=== PATIENT | male | born 1955 | race Caucasian/White ===

== ENCOUNTER 2018-08-18 17:41 | Inpatient (IN) | payer BC ==
[~2018-08-18] VITALS: Ht 180.3 cm; Wt 84.5 kg
[2018-08-18 18:10] LABS: BASO # 0.1 (0.0-0.2); BASO % 0.4 % (0.0-2.0); EOS # 0.2 (0.0-0.7); EOS % 1.2 % (0-4.0); GRAN # 7.5 (1.4-6.5); GRAN % 55.1 % (42.2-75.2); HEMATOCRIT 41.7 % (42.0-52.0); HEMOGLOBIN 14.4 g/dl (13.5-18.0); LYMPH # 4.5 (1.2-3.4); LYMPH % 33.3 % (20.0-51.0); MEAN CELL VOLUME 90 fl (80.0-100.0); MEAN CORPUSCULAR HEMOGLOBIN 31 pg (27.0-31.0); MEAN CORPUSCULAR HGB CONC 35 g/dl (33.0-37.0); MEAN PLATELET VOLUME 10.1 fl (7.4-10.4); MONO # 1.3 (0.1-0.6); MONO % 9.6 % (1.7-9.3); PLATELET COUNT 231 K/mm3 (130-400); RED BLOOD COUNT 4.63 M/mm3 (4.20-5.60); REDCELL DISTRIBUTION WIDTH-CV 12.9 % (11.5-14.5)
[2018-08-18 18:16] LABS: INR 0.9 (0.8-3.0); PROTHROMBIN TIME 10.7 SECONDS (9.7-12.8)
[2018-08-18 18:24] LABS: ALBUMIN 4.5 gm/dL (3.5-5.0); BILIRUBIN,TOTAL 0.4 mg/dL (0.0-1.0); CALCIUM 10.1 mg/dL (8.4-10.2); CREATININE, serum 1.31 mg/dL (0.66-1.25); POTASSIUM 3.9 mmol/L (3.4-5.0); TOTAL PROTEIN 7.5 gm/dL (6.4-8.2)
[2018-08-18] MEDS ORDERED: LOFIBRA160 MG PO (19:24)
[2018-08-18] MEDS ORDERED: PRINZIDE 12.5 M1 TA1 PO (19:24)
[2018-08-18] MEDS ORDERED: TOPROL XL 50MG50 MG PO (19:24)
[2018-08-18] MEDS ORDERED: ZANTAC 150150 MG PO (20:25)
[2018-08-18 21:10] VITALS: BP 123/87; PULSE 87; TEMP 98.2
--- NOTE | 2018-08-18 22:00 | NUR ---
Admitted to room 318 from ER with DVT,PE--Has heparin drip infusing at 15.3cc/hr at this time- was started in ER. Pt denies pain at this time.His left lower leg larger than right leg- no redness or warmth noted. VSS
[2018-08-18 23:12] VITALS: BP 138/65; BP 140/82; PULSE 62; PULSE 78; TEMP 97.7; TEMP 98.3
[2018-08-19 02:01] LABS: PH 6 (5-8); SQUAMOUS EPITHELIAL None Seen /hpf; URINE APPEARANCE Clear; URINE BACTERIA None Seen /hpf; URINE BILIRUBIN Negative (NEGATIVE); URINE BLOOD Negative (NEGATIVE); URINE COLOR Yellow; URINE GLUCOSE Negative (NEGATIVE); URINE KETONE Negative (NEGATIVE); URINE LEUKOCYTE ESTERASE Negative (NEGATIVE); URINE NITRATE Negative (NEGATIVE); URINE PROTEIN(semi-quant) Negative (NEGATIVE); URINE RBC 0-2 /hpf; URINE UROBILINOGEN Negative (NEGATIVE)
[2018-08-19 02:55] LABS: COLLECTION METHOD CLEAN CATCH
[2018-08-19 04:19] VITALS: BP 119/69; BP 157/82; PULSE 57; PULSE 88; TEMP 98.4
--- NOTE | 2018-08-19 06:20 | NUR ---
Has rested some last night-- Heparin drip was lowered to 13.8cc/hr after hepxa of 0.81 at 0230 this morning. Troponin was slightly increased- Alycia notified of troponins during the night-
[2018-08-19 08:09] VITALS: BP 133/85; PULSE 84; TEMP 98
[2018-08-19 08:42] LABS: BASO # 0.1 (0.0-0.2); BASO % 0.6 % (0.0-2.0); EOS # 0.2 (0.0-0.7); EOS % 1.9 % (0-4.0); GRAN # 5.9 (1.4-6.5); GRAN % 52.3 % (42.2-75.2); HEMATOCRIT 38.1 % (42.0-52.0); HEMOGLOBIN 13.3 g/dl (13.5-18.0); LYMPH % 35.3 % (20.0-51.0); MEAN CELL VOLUME 90 fl (80.0-100.0); MEAN CORPUSCULAR HEMOGLOBIN 31 pg (27.0-31.0); MEAN CORPUSCULAR HGB CONC 35 g/dl (33.0-37.0); MEAN PLATELET VOLUME 10.3 fl (7.4-10.4); MONO # 1.1 (0.1-0.6); MONO % 9.5 % (1.7-9.3); PLATELET COUNT 204 K/mm3 (130-400); RED BLOOD COUNT 4.24 M/mm3 (4.20-5.60); REDCELL DISTRIBUTION WIDTH-CV 13.1 % (11.5-14.5)
[2018-08-19 09:07] LABS: CALCIUM 9.3 mg/dL (8.4-10.2); CREATININE, serum 1.02 mg/dL (0.66-1.25)
[2018-08-19 09:24] LABS: TROPONIN-I 0.041 ng/mL (0.000-0.035)
[2018-08-19 12:02] VITALS: BP 145/87; PULSE 84; TEMP 98.3
--- NOTE | 2018-08-19 14:42 | NUR ---
SW met with patient about discharge planning. Patient lives at home by himself and works full-time. Patient's PCP is Dr Drake and he obtains prescriptions from [facility]. Patient does not use any home health services or DME. Patient does not have a DPOA and is not interested in completing one at this time. SW does not anticipate any discharge needs.
[2018-08-19 16:47] VITALS: BP 127/82; PULSE 86; TEMP 97.9
[2018-08-19 19:02] VITALS: BP 137/91; PULSE 91; TEMP 98.6
--- NOTE | 2018-08-19 19:02 | NUR ---
Bedside assessment of Heparin gtt reviewed with STEVEN Pedraza
--- NOTE | 2018-08-19 21:48 | NUR ---
Pt resting in bed watching TV, no C/O pain at this time, shift assessments complete, left Pt call light in reach, bed in lowest position.
[2018-08-19 23:06] VITALS: BP 115/65; PULSE 81; TEMP 98.8
[2018-08-20 04:03] VITALS: BP 119/81; PULSE 80; TEMP 98.6
--- NOTE | 2018-08-20 05:28 | NUR ---
Pt slept some during the night, no C/O pain, VS have remained stable.
--- NOTE | 2018-08-20 06:57 | NUR ---
Contacted lab regarding HepXa that was due at 0300, lab states they were unable to draw blood. information technology audit manager asked if they notified anyone about this he replied no. This nurse asked if he could send up another tech to draw blood.
[2018-08-20 07:43] VITALS: BP 127/79; PULSE 80; TEMP 97.6
[2018-08-20 08:37] LABS: BASO # 0.1 (0.0-0.2); BASO % 0.6 % (0.0-2.0); EOS # 0.2 (0.0-0.7); EOS % 1.7 % (0-4.0); GRAN # 6.1 (1.4-6.5); GRAN % 51.3 % (42.2-75.2); HEMOGLOBIN 12.6 g/dl (13.5-18.0); LYMPH # 4.4 (1.2-3.4); LYMPH % 36.8 % (20.0-51.0); MEAN CELL VOLUME 91 fl (80.0-100.0); MEAN CORPUSCULAR HEMOGLOBIN 31 pg (27.0-31.0); MEAN CORPUSCULAR HGB CONC 34 g/dl (33.0-37.0); MEAN PLATELET VOLUME 10.7 fl (7.4-10.4); MONO # 1.1 (0.1-0.6); MONO % 9.3 % (1.7-9.3); PLATELET COUNT 220 K/mm3 (130-400); RED BLOOD COUNT 4.07 M/mm3 (4.20-5.60); REDCELL DISTRIBUTION WIDTH-CV 13.1 % (11.5-14.5)
[2018-08-20 08:40] LABS: CALCIUM 9.6 mg/dL (8.4-10.2); POTASSIUM 4.4 mmol/L (3.4-5.0)
--- NOTE | 2018-08-20 09:30 | NUR ---
patient was resting in bed watching tv upon arrival. Shift assessment complete. patient denies numbness, tingling, dizziness, N/V, SOB, palpitations. Lung sounds are clear throughout, BLE warmth but no swelling. patient states the swelling has also gone down. Hep XA returned, 0.35, new bag started. patient assisted to bathroom, independent. patient had bowel movement and specimen collected for stool occult. Patient has no other needs or questions at this time.
[2018-08-20 11:56] VITALS: BP 133/79; PULSE 83; TEMP 98.5
--- NOTE | 2018-08-20 14:00 | NUR ---
patient sitting in bed with family at bedside, IVF D/C'd. Heparin gtt still going. Patient has no complaints at this time.
[2018-08-20 15:38] VITALS: BP 133/81; PULSE 85; TEMP 98.4
--- NOTE | 2018-08-20 18:38 | NUR ---
patient has had an uneventful day, is independent. Patient sitting on edge of bed watching tv. Patients only complaint is of some pain behind his left knee. Hep gtt still running at 13.8 mls/hr. No other needs at this time.
[2018-08-20 19:12] VITALS: BP 149/89; PULSE 89; TEMP 98.4
--- NOTE | 2018-08-20 20:53 | NUR ---
Pt resting in bed, up on commode passing gas, diarrhea has slowed. Shift assessments complete, left Pt call light in reach, bed in lowest position.
[2018-08-20 23:18] VITALS: BP 156/80; PULSE 113; TEMP 98.2
[2018-08-21 04:19] VITALS: BP 117/70; PULSE 82; TEMP 98.7
--- NOTE | 2018-08-21 05:37 | NUR ---
Pt slept well during the night, no C/O pain, VS have remained stable.
[2018-08-21 07:43] VITALS: BP 145/87; PULSE 79; TEMP 98
--- NOTE | 2018-08-21 09:40 | NUR ---
Patient sitting in bed watching tv upon entering. Heparin drip running at 13.8 cc/hr. Shift assessment completed, Pt denies SOB, palpitations, dizziness, N/V, numbness or tingling. Patient states he slept well, has a good appetite, moved from bed to chair and bed to bathroom over the night. States pain behind left knee is better, rates it at 2/10. Hep gtt D/C'd, xarelto prescribed and has exericise ox. Patient should be discharged today.
[2018-08-21 11:46] VITALS: BP 125/76; PULSE 82; TEMP 98.3
[2018-08-21 11:46] LABS: PARTIAL THROMBOPLASTIN TIME 47.6 SECONDS (26.0-37.0)
--- NOTE | 2018-08-21 14:42 | NUR ---
patient down for CT.
--- NOTE | 2018-08-21 14:45 | NUR ---
Patient is back from CT, heparin hooked back up.
[2018-08-21 16:22] VITALS: BP 134/84; PULSE 81; TEMP 98.7
--- NOTE | 2018-08-21 18:53 | NUR ---
Patient sitting on edge of bed, getting ready to eat dinner. patient has had slightly uneventful day. Originally thought he would discharge, he will be staying to be monitored another day or two. patient states he is feeling much better, no SOB or pain. Heparin gtt at 13.8 cc/hr still going. Gave shift report to STEVEN Muñoz.
[2018-08-21 20:21] VITALS: BP 137/79; PULSE 82; TEMP 98
--- NOTE | 2018-08-21 21:20 | NUR ---
Patient assessed at this time. Denies having pain and discomfort at this time, including to LLE. No swelling, discoloration, or pain to LLE. Pedal pulses present and equal bilaterally. Denies having SOB and dyspnea. Reports occasional productive cough. Unable to produce sputum. Denies having SOB and dyspnea. LS CTA. Respirations even and unlabored. Sitting up in bed visiting with company at this time. Denies having any questions or concerns at this time. Call light is within reach.
[2018-08-22] VITALS (7 sets, daily range): BP systolic 94–152; BP diastolic 58–99; PULSE 78–81; TEMP 97.4–98.4
--- NOTE | 2018-08-22 03:31 | NUR ---
Patient has been denying pain and discomfort during this shift. Encouraged to keep LLE elevated. IV to RAC D/C'd due to being 3 days old, and restarted IV to left forarm. Continues on Heparin drip per orders. Denies having any concerns at this time. Resting in bed with eyes closed at this time. Call light is within reach.
--- NOTE | 2018-08-22 06:08 | NUR ---
Denies having pain and discomfort. Heparin put on hold for short time before HepXa lab was drawn. Restarted Heparin drip afterwards. Awaiting results at this time. Patient denies having any needs or concerns at this time. Sitting up watching TV in bed at this time. Call light is within reach.
--- NOTE | 2018-08-22 12:54 | NUR ---
Pt alert and oriented. Pt rates pain 1/10 at worst when up with movement but at rest pt denies pain. Pt edu on elevating left lower extremity. No redness or edema noted to LLE. Pt given MARSHA hose thigh high to apply. Pt has Heparin running and Hep Xa checked per protocol. IV patent. Pt has order to start IV NS. Attempted to place IV in RFA but small blood return and then flushed and infiltration noted. IV discontinued. Notified Nicolle ANTOINE and NS on hold until we hear from [facility] today. No IV start until then. Pt agrees d/t hard time with veins and IV starts. Pt has call light in reach and company at bedside now.
--- NOTE | 2018-08-22 18:22 | NUR ---
Pt alert and oriented and independent in the room. Pt has MARSHA thigh high on darren lower extremities. Pt Heparin gtt discontinued. Pt started on normal saline per orders. Pt to have CTA of pancreas. [facility] was consulted on pancreatic mass. Pt has call light in reach and has not ate supper d/t receiving contrast with CT. Pt denies needs at this time. Pt LLE not red or edematous. Pt denies pain.
--- NOTE | 2018-08-22 18:49 | NUR ---
Pt report given to Wanda HARRIS. Pt food ordered for after CT has been completed.
--- NOTE | 2018-08-23 01:45 | NUR ---
Patient assessed after returning from CT. Denied having pain and discomfort. Was wearing MARSHA hose to BLE. BLE without redness, warmth, swelling, and pain. Independent in room. NS running at 75 mls/hr to Peripheral IV to left forearm. Site is without redness, warmth, swelling, and pain. LS CTA. Denies having SOB and dyspnea. Resting in bed with eyes closed at this time. Call light is within reach.
[2018-08-23 04:09] VITALS: BP 88/62; PULSE 78; TEMP 97.9
[2018-08-23 04:25] VITALS: BP 110/72
[2018-08-23 06:56] LABS: BASO # 0.1 (0.0-0.2); BASO % 0.7 % (0.0-2.0); EOS # 0.2 (0.0-0.7); EOS % 2.2 % (0-4.0); GRAN # 5.7 (1.4-6.5); GRAN % 60.8 % (42.2-75.2); HEMATOCRIT 38.5 % (42.0-52.0); HEMOGLOBIN 13.1 g/dl (13.5-18.0); LYMPH # 2.4 (1.2-3.4); LYMPH % 25.6 % (20.0-51.0); MEAN CELL VOLUME 90 fl (80.0-100.0); MEAN CORPUSCULAR HEMOGLOBIN 31 pg (27.0-31.0); MEAN CORPUSCULAR HGB CONC 34 g/dl (33.0-37.0); MEAN PLATELET VOLUME 10.1 fl (7.4-10.4); MONO # 0.9 (0.1-0.6); PLATELET COUNT 295 K/mm3 (130-400); RED BLOOD COUNT 4.26 M/mm3 (4.20-5.60); REDCELL DISTRIBUTION WIDTH-CV 13.2 % (11.5-14.5)
[2018-08-23 07:11] LABS: CALCIUM 9.7 mg/dL (8.4-10.2); CREATININE, serum 1.22 mg/dL (0.66-1.25); POTASSIUM 4.3 mmol/L (3.4-5.0)
--- NOTE | 2018-08-23 07:30 | NUR ---
Report received from STEVEN Muñoz
--- NOTE | 2018-08-23 08:01 | NUR ---
Patient was resting in bed with eyes closed most of the night. Denied having pain and discomfort. Voices no needs or concerns. NS continues at 75 ml/hr to peripheral IV to left forearm. Patient put MARSHA hose on this morning. Report given to oncoming nurse.
[2018-08-23 09:24] VITALS: BP 117/80; PULSE 81; TEMP 97.8
--- NOTE | 2018-08-23 11:09 | NUR ---
First visit from the counter waitress/waiter. No needs right now.
[2018-08-23 12:10] VITALS: BP 150/78; PULSE 76; TEMP 98
[2018-08-23] MEDS ORDERED: NICODERM C21 MG/PATC TD (12:42)
[2018-08-23] MEDS ORDERED: XARELTO15 MG PO (12:43)
[2018-08-23] MEDS ORDERED: XARELTO20 MG PO (12:45)
[2018-08-23] MEDS ORDERED: PRINZIDE 12.5 M1 TA1 PO (12:46)
--- NOTE | 2018-08-23 14:29 | NUR ---
AWAITING CALL BACK FROM [facility] FOR APPOINTMENT FOR SURGICAL ONCOLOGY CONSULT.
--- NOTE | 2018-08-23 15:27 | NUR ---
PATIENT RECEIVES PHONE CALL FROM [facility] FOR CONSULT WITH DR. VILLARREAL ON 09-01-18 AT [id number]
--- NOTE | 2018-08-23 15:53 | NUR ---
DISCHARGE PACKET, FOLLOW UP APPTS, MEDICATION LIST AND OTHER NEEDED DISCHARGE INFORMATION REVIEWED. WE DISCUSSED LAB ORDERS FOR 3 DAYS AFTER DISCHARGE. PATIENT VERBALIZES UNDERSTANDING. PATIENT AMBULATES OUT WITH THIS RN AND HIS FATHER.
== END 2018-08-23 15:55 | disposition home or self-care (01) | DRG 175 ==
LOC: COL.ER 17:41 → MEDICAL 19:09
PROVIDERS: Emergency Medicine; Hospitalist; Nurse Practitioner Family; Physician Assistant
DX: I26.99 Other pulmonary embolism without acute cor pulmonale (principal); I21.4 Non-ST elevation (NSTEMI) myocardial infarction; I82.412 Acute embolism and thrombosis of left femoral vein; I82.432 Acute embolism and thrombosis of left popliteal vein; S22.32XA Fracture of one rib, left side, initial encounter for closed fracture; Z66 Do not resuscitate; I10 Essential (primary) hypertension; E78.5 Hyperlipidemia, unspecified; F17.210 Nicotine dependence, cigarettes, uncomplicated; K86.9 Disease of pancreas, unspecified; D73.89 Other diseases of spleen; I27.20 Pulmonary hypertension, unspecified
CPT/HCPCS: 99223-AI; 99232-AI; 99233-AI; 99239; J1644; J7030; Q9967

== ENCOUNTER → 2018-08-26 | Outpatient (CLI) | payer BC ==
[~2018-08-26] MED LIST: LOFIBRA160 MG PO; NICODERM C21 MG/PATC TD; PRINZIDE 12.5 M1 TA1 PO; TOPROL XL 50MG50 MG PO; XARELTO15 MG PO; XARELTO20 MG PO; ZANTAC 150150 MG PO
[2018-08-26 11:07] LABS: HEMATOCRIT 42.5 % (42.0-52.0); HEMOGLOBIN 14.3 g/dl (13.5-18.0); MEAN CELL VOLUME 92 fl (80.0-100.0); MEAN CORPUSCULAR HEMOGLOBIN 31 pg (27.0-31.0); MEAN CORPUSCULAR HGB CONC 34 g/dl (33.0-37.0); MEAN PLATELET VOLUME 9.8 fl (7.4-10.4); PLATELET COUNT 424 K/mm3 (130-400); RED BLOOD COUNT 4.63 M/mm3 (4.20-5.60); REDCELL DISTRIBUTION WIDTH-CV 13.1 % (11.5-14.5)
[2018-08-26 11:19] LABS: CALCIUM 10.4 mg/dL (8.4-10.2); CREATININE, serum 1.03 mg/dL (0.66-1.25); POTASSIUM 4.4 mmol/L (3.4-5.0)
== END ==
LOC: COL.LAB 10:20
PROVIDERS: Physician Assistant
DX: I82.402 Acute embolism and thrombosis of unspecified deep veins of left lower extremity (principal); I26.99 Other pulmonary embolism without acute cor pulmonale

== ENCOUNTER → 2024-01-25 | Outpatient (CLI) | payer MEDICARE | LOC: COL.RAD 08:12 | DX: F17.210 Nicotine dependence, cigarettes, uncomplicated (principal) ==